=== PATIENT | male | born 1965 | race Caucasian/White ===

== ENCOUNTER 2022-09-21 07:18 | Outpatient (CLI) | payer BC, SELFPAY ==
--- NOTE | ~2022-09-21 | US_ITS ---
EXAMINATION: US abdomen complete DATE: 09/21/2022 07:59 INDICATION: Abnormal levels of other serum enzymes. TECHNIQUE: Multiple grayscale and Doppler ultrasound images of the abdomen were obtained. COMPARISON: CT abdomen and pelvis 03/07/2016 FINDINGS: Abdominal aorta is normal in caliber. The visualized portions of the head and body of the p ancreas are normal. The liver is normal without focal lesion. There is normal flow in main portal vei n. The inferior vena cava is normal. The gallbladder is normal in size. No gallstones or gallbladder wall thickening. There is no sonographic Irizarry sign. The common duct is normal and measures 3 mm. Th e kidneys are normal in size. The spleen is normal in size. IMPRESSION: 1. Normal complete abdomen ultrasound. Reviewed, dictated and finalized at location A.
== END 2022-09-21 07:19 | disposition home or self-care (01) ==
PROVIDERS: PCP Family Medicine; Visit Provider Physician Assistant Medical
DX: R74.8 Abnormal levels of other serum enzymes (principal)
CPT/HCPCS: 76700

== ENCOUNTER 2022-10-29 17:45 | Emergency (ER) | payer BC, SELFPAY ==
[2022-10-29 17:48] VITALS: BP 195/100; PULSE 97; RESP 18; TEMP 36.5; O2SAT 98
--- NOTE | 2022-10-29 18:55 | ED.GENADULT ---
HPI - General Adult General Chief complaint: Urogenital-Male Stated complaint: diff urinating s/p prostate biopsy - jany Time Seen by Provider: 10/29/22 18:15 History of Present Illness HPI narrative: 57-year-old male presented to the emergency department for evaluation of increased urinary retention. Patient did have a rectal approach prostate biopsy by Dr. Reich. Patient states he has not been able to urinate since the procedure. Related Data Allergies Allergy/AdvReac Type Severity Reaction Status Date / Time No Known Allergies Allergy Verified 09/14/22 08:17 Review of Systems Review of Systems: All systems reviewed & are unremarkable except as noted in HPI and below PMFSH Past Medical History Medical History BMI 26.0-26.9,adult BMI 27.0-27.9,adult Family History Family History Father Hypertension Family history of diabetes mellitus in first degree relative Mother Hypertension Family history of kidney disease Family history of diabetes mellitus in first degree relative Social History Social History Smoking status: Never smoker Alcohol intake: current Lack of Transportation: No Lack of Food: Never True Current Housing: I Have Housing Concerned About Future Housing: No Difficulty Paying Gas/Electric Bills: No Difficulty Paying for Meds: No Currently Unemployed: No Education: Bachelor's Degree Difficulty w/ Childcare or Family Care: No Exam Narrative: APPEARANCE: Well appearing, no pain, no distress, well-nourished. HEAD: normocephalic, atraumatic. EYES: PERRLA/EOMI, conjunctivae clear. NOSE: Normal no drainage EARS:TMS clear with good light reflex. THROAT: Pharynx clear, no exudate. NECK: Supple. No adenopathy, no masses. RESPIRATORY: Airway patent, respirations nonlabored. Clear to auscultation bilaterally, no rales, rhonchi, wheezing. CARDIOVASCULAR: Regular rate and rhythm without murmurs rubs or gallops. ABDOMINAL: Soft, nontender, nondistended, normal bowel sounds MUSCULOSKELETAL: Moves all extremities. Strength/ROM intact, No edema, No calf tenderness. NEURO: Alert. Cranial nerves II through XII intact. Grossly intact SKIN: Warm, dry. Normal Color Course Course Emergency Course: 57-year-old male presented to the emergency department for evaluation of urinary retention. Patient had a post residual urinary volume of greater than 650 mL. Patient had a straight cath and had no gross hematuria. Patient will have a indwelling Mai catheter placed. 7:53 PM UA did show some hematuria but no significant evidence of infection. Patient was started on Flomax. Patient was updated on the plan for discharge with a Mai catheter. Patient was encouraged of close follow-up with Dr. Reich. All questions and concerns were addressed and patient was well-appearing at time of discharge. Vital Signs Vital signs: Vital Signs Temperature 97.7 F 10/29/22 17:48 Pulse Rate 97 10/29/22 17:48 Respiratory Rate 18 10/29/22 17:48 Blood Pressure 195/100 H 10/29/22 17:48 Pulse Oximetry 98 10/29/22 17:48 Oxygen Delivery Room Air 10/29/22 17:48 Temperature 97.7 F 10/29/22 17:48 Pulse Rate 83 10/29/22 20:48 Respiratory Rate 15 10/29/22 20:48 Blood Pressure 158/93 H 10/29/22 20:48 Pulse Oximetry 100 10/29/22 20:48 Oxygen Delivery Room Air 10/29/22 17:48 Medical Decision Making Differential Diagnosis Differential Diagnosis: Urinary tract infection, urinary retention Vital Signs Vital Signs: Vital Signs Temperature 97.7 F 10/29/22 17:48 Pulse Rate 97 10/29/22 17:48 Respiratory Rate 18 10/29/22 17:48 Blood Pressure 195/100 H 10/29/22 17:48 Pulse Oximetry 98 10/29/22 17:48 Oxygen Delivery Room Air 10/29/22 17:48 Temperature 97.7 F 10/29/22 17:48
[2022-10-29 19:17] LABS: Appearance Urine Clear (Clear); Bacteria Urine None Seen /hpf; Bilirubin Urine Negative (Negative); Blood Urine 3+ (Negative); Color Urine Yellow (Yellow); Glucose Urine UA 3+ mg/dL (Negative); Ketones Urine Trace mg/dL (Negative); Leukocyte Esterase Ur Negative LEU/UL (Negative); Nitrate Urine Negative (Negative); Non Pathogenic Casts 0-2; Protein Urine Trace mg/dL (Negative); RBC Urine >100 /hpf (0-2); Specific Grav Ur 1.017 (1.001-1.035); Squamous Epithelial Cell Urine None seen /hpf (Few); WBC Urine 0-5 /hpf
[2022-10-29 19:27] LABS: Add Urine Microscopic? YES
[2022-10-29] MEDS: TAMSULOSIN HCL 0.4 MG CAPSULE PO (19:27)
[2022-10-29 20:48] VITALS: BP 158/93; PULSE 83; RESP 15; O2SAT 100
== END 2022-10-29 20:52 | disposition home or self-care (01) ==
PROVIDERS: Emergency Provider Emergency Medicine; PCP Family Medicine
DX: R33.9 Retention of urine, unspecified (principal)
CPT/HCPCS: 81001; 99283; A9270

== ENCOUNTER 2022-11-21 11:30 | Outpatient (CLI) | payer BC, SELFPAY ==
--- NOTE | ~2022-11-21 | PE_ITS ---
EXAMINATION: PET_PETPSMAST_PT DATE: 11/21/2022 13:59 INDICATION: Prostate cancer. TECHNIQUE: 9.176 mCi of piflufolastat F-18 was administered intravenously. Low dose computed tomograp hy (CT) images were acquired from the base of the brain to the proximal thighs for attenuation correc tion and anatomic localization. Automated exposure control was employed. Dose-length product (DLP) wa s 481 mGy-cm. Positron emission tomography (PET) images were acquired in the same distribution. COMPARISON: CT abdomen and pelvis 03/07/2016 FINDINGS: Head/neck: There are no pathologically enlarged lymph nodes. Chest: Calcified pulmonary nodules and calcified hilar and mediastinal lymph nodes are consistent wit h old granulomatous disease. No pleural effusion. Cardiomegaly is noted. No pericardial effusion. Abdomen/pelvis/proximal thighs: The liver, gallbladder, spleen, pancreas, adrenal glands, and kidneys are normal. There is no urolithiasis. The prostate is mildly enlarged. There is mild activity in the prostate with maximum SUV of 4.3 in the inferior prostate at the midline. There is diffuse bladder w all thickening, likely secondary to chronic outlet obstruction. There are no dilated loops of bowel. The appendix is normal. There are no pathologically enlarged lymph nodes. There is no free intraperit daniel fluid. There is asymmetric fat in the right inguinal canal that may be a hernia. There is a rip ign bone island in left parasymphyseal pubis. IMPRESSION: 1. Mildly enlarged prostate with mild activity, consistent with primary malignancy. No evidence of me tastatic disease. Reviewed, dictated and finalized at location A. IMPRESSION: 1. Mildly enlarged prostate with mild activity, consistent with primary maligna ncy. No evidence of metastatic disease.
== END 2022-11-21 11:31 | disposition home or self-care (01) ==
PROVIDERS: PCP Family Medicine; Visit Provider Urology
DX: C61 Malignant neoplasm of prostate (principal)
CPT/HCPCS: 78815; A9595

== ENCOUNTER 2023-02-04 09:42 | Outpatient (CLI) | payer BC, SELFPAY ==
--- NOTE | 2023-02-04 10:45 | ECG_ITS ---
Measurements Intervals [place] Rate: 77 P: 41 AK: 164 QRS: 1 QRSD: 86 T: 5 QT: 364 QTc: 414 Interpretive Statements SINUS RHYTHM POOR R-WAVE PROGRESSION OTHERWISE nORMAL ELECTROCARDIOGRAM NO PREVIOUS ECG AVAILABLE FOR COMPARISON Electronically Signed On 02-04-2023 13:39:10 CDT by Lucius Hyman M.D.
[2023-02-04 11:42] LABS: Basophils Absolute Auto 0.1 K/mm3 (0.0-0.1); Eosinophils Absolute Auto 0.4 K/mm3 (0-0.3); Eosinophils Percent Auto 5.9 % (0-4.4); Hematocrit 42.2 % (42.0-52.0); Hemoglobin 13.9 g/dL (14.0-18.0); Immature Granulocyte Absolute 0.02 K/mm3 (0.00-0.031); Immature Granulocyte Percent A 0.3 % (0-0.5); Lymphocytes Absolute Auto 2.35 K/mm3 (0.9-3.2); Lymphocytes Percent Auto 34.8 % (18.3-44.2); Mean Corpuscular HGB Conc 32.9 g/dl (32-36); Mean Corpuscular Hemoglobin 30.2 pg (26-34); Mean Corpuscular Volume 91.7 fl (80-100); Mean Platelet Volume 9.3 fl (7.4-10.4); Monocytes Absolute Auto 0.4 K/mm3 (0.1-0.6); Monocytes Percent Auto 5.3 % (2.6-8.5); Neutrophils Absolute Auto 3.6 K/mm3 (1.3-6.7); Neutrophils Percent Auto 52.7 % (45.5-73.1); Platelet Count Result 275 k/mm3 (150-375); Red Cell Distribution Width 12.2 % (11.5-14.5); White Blood Count 6.8 K/mm3 (4.5-10.0)
[2023-02-04 11:52] LABS: Alanine Aminotransferase 63 U/L (6-50); Albumin Level 4.8 g/dL (3.5-5.1); Alkaline Phosphatase 111 U/L (38-126); Anion Gap 12 mmol/L (8-16); Aspartate Amino Transferase 55 U/L (17-59); Bilirubin,Total 0.7 mg/dL (0.2-1.3); Blood Urea Nitrogen 13 mg/dL (9-20); Calcium 9.3 mg/dL (8.4-10.2); Carbon Dioxide 25 mmol/L (22-30); Chloride 103 mmol/L (98-107); Estimated Glomerular Filt Rate > 60; Glucose 134 mg/dL (65-110); Potassium 3.8 mmol/L (3.4-5.0); Sodium 140 mmol/L (137-145)
[2023-02-04 11:53] LABS: INR 0.9; Prothrombin Time 12.9 Seconds (11.1-14.7)
[2023-02-04 11:54] LABS: Partial Thromboplastin Time 26.4 SECONDS (22.3-36.8)
== END 2023-02-04 09:43 | disposition home or self-care (01) ==
LOC: ANHSURGERY 09:48
PROVIDERS: PCP Family Medicine; Visit Provider Urology
DX: C61 Malignant neoplasm of prostate (principal); I10 Essential (primary) hypertension; Z01.818 Encounter for other preprocedural examination
CPT/HCPCS: 36415; 80053; 85025; 85610; 85730; 87086; 93005

== ENCOUNTER 2023-02-19 01:20 | Day surgery (SDC) | payer BC, SELFPAY ==
[2023-02-04 09:57] VITALS: PULSE 80; RESP 16; TEMP 37.3; O2SAT 100; BMI 28.0
--- NOTE | 2023-02-04 10:05 | PC.NURSE ---
Report to the Outpatient Waiting Room, entrance under the green pavilion located off [facility], at time ___6:00AM____ on date __02/19/23 . Planned Procedure Time: ___7:30AM . Time changes happen often and if your time is changed the preop area will call you the afternoon before. - You and your visitor will be asked to self-screen and do not enter if you have any COVID symptoms. - A mask is optional within the hospital at this time. Patients may have clear liquids (water, carbonated beverages, clear teas, apple juice) until 3 hours prior to surgery with a maximum of 20 ounces. - No food from midnight until time of surgery. Take the following medications with a SIP of water the morning of surgery: ____METOPROLOL DO NOT STOP ANY OF YOUR OTHER PRESCRIPTION MEDICATIONS PRIOR TO SURGERY ?EXCEPT THE FOLLOWING Medications to discontinue per physician ___NONE Date to take last dose Please no make-up, nail algerian, hairspray, perfume, deodorant, or body powder the day of surgery. No jewelry (including any body piercings) or valuables the day of surgery, leave them at home. Please take a shower or bath the night before, or the morning of, surgery with an antibacterial soap. Wear comfortable, loose fitting clothing. Children are encouraged to wear pajamas. - Jewelry must be removed prior to entering the operating room. Rings and piercings that are not removed may be cut off. - The hospital will not accept responsibility for valuables. - Please leave all valuables, including medications, at home the day of surgery. If you are going home after surgery, a licensed [place] driver must drive you home. - NO public transportation without another adult if you receive anesthesia. - We recommend that an adult stay with you for 24 hours following discharge. - We also recommend that you do not drive, make important decision, drink alcoholic beverages, or take any drugs that were not prescribed by your health care provider for at least 24 hours after your discharge time. Follow any additional instructions given to you from your surgeon. If you or anyone in your household have experienced Covid symptoms in the past week, please notify your surgeon or the nurse liaison at the phone number below for possible testing. Telephone instructions given to __PATIENT and asked if any additional questions and then verbalized understanding. Patient advised to call surgeon office or pre surgery nurse liaison [phone] if any additional questions. Report to the Outpatient Waiting Room, entrance under the green pavilion located off [facility], at time on date . Planned Procedure Time: . Time changes happen often and if your time is changed the preop area will call you the afternoon before. - You and your visitor will be asked to self-screen and do not enter if you have any COVID symptoms. - A mask is optional within the hospital at this time. Patients may have clear liquids (water, carbonated beverages, clear teas, apple juice) until 3 hours prior to surgery with a maximum of 20 ounces. - No food from midnight until time of surgery - Infants may have breast milk until 4 hours before surgery, formula 6 hours prior to surgery. - Children will be allowed to drink immediately following surgery. If applicable, please bring a bottle or sippy cup to assist with drinking. Juice, water, soda, and popsicles are readily available. For infants on formula, please bring formula the day of surgery. Pacifiers are allowed. Take the following medications with a SIP of water the morning of surgery: DO NOT STOP ANY OF YOUR OTHER PRESCRIPTION MEDICATIONS PRIOR TO SURGERY ?EXCEPT THE FOLLOWING Medications to discontinue per physician Date to take last dose Please no make-up, nail algerian, hairspr
--- NOTE | 2023-02-04 10:09 | PC.NURSE ---
Report to the Outpatient Waiting Room, entrance under the green pavilion located off [facility], at time __6:00AM on date __02/19/23 . Planned Procedure Time: _7:30AM . Time changes happen often and if your time is changed the preop area will call you the afternoon before. - You and your visitor will be asked to self-screen and do not enter if you have any COVID symptoms. - A mask is optional within the hospital at this time. Patients may have clear liquids (water, carbonated beverages, clear teas, apple juice) until 3 hours prior to surgery with a maximum of 20 ounces. - No food from midnight until time of surgery. Take the following medications with a SIP of water the morning of surgery: _METOPROLOL DO NOT STOP ANY OF YOUR OTHER PRESCRIPTION MEDICATIONS PRIOR TO SURGERY ?EXCEPT THE FOLLOWING Medications to discontinue per physician NONE Date to take last dose Please no make-up, nail maltese, hairspray, perfume, deodorant, or body powder the day of surgery. No jewelry (including any body piercings) or valuables the day of surgery, leave them at home. Please take a shower or bath the night before, or the morning of, surgery with an antibacterial soap. Wear comfortable, loose fitting clothing. - Jewelry must be removed prior to entering the operating room. Rings and piercings that are not removed may be cut off. - The hospital will not accept responsibility for valuables. - Please leave all valuables, including medications, at home the day of surgery. If you are going home after surgery, a licensed recycling collections driver must drive you home. - NO public transportation without another adult if you receive anesthesia. - We recommend that an adult stay with you for 24 hours following discharge. - We also recommend that you do not drive, make important decision, drink alcoholic beverages, or take any drugs that were not prescribed by your health care provider for at least 24 hours after your discharge time. Follow any additional instructions given to you from your surgeon. If you or anyone in your household have experienced Covid symptoms in the past week, please notify your surgeon or the nurse liaison at the phone number below for possible testing. Telephone instructions given to ___PATIENT and asked if any additional questions and then verbalized understanding. Patient advised to call surgeon office or pre surgery nurse liaison [phone] if any additional questions.
--- NOTE | 2023-02-18 15:09 | WPDANESEPPF ---
Anes - Initial Pre Proc Eval Procedure: Operation Date: 02/19/23 07:30 Proposed Procedures p Robotic Assisted Nerve Sparing Prostatectomy with Possible Pelvic Lymph Node Dissection - Lang Reich MD Date/Time: 02/18/23 15:09 Surgeon: Lang Reich MD Pre Op Diagnosis: prostate cancer Patient Data Age: 57 Gender: M Height: 1.78 m Weight: 88.9 kg Last Vital Signs Temp 99.1 F 02/04/23 09:57 Pulse 80 02/04/23 09:57 Resp 16 02/04/23 09:57 Pulse Ox 100 02/04/23 09:57 O2 Del Method Room Air 02/04/23 09:57 Allergies Allergy/AdvReac Type Severity Reaction Status Date / Time No Known Allergies Allergy Verified 02/04/23 09:53 Home Medications Medication Instructions Recorded Confirmed Type rosuvastatin 20 mg tablet (Crestor) 20 mg PO DAILY #30 tabs 10/15/22 02/04/23 Rx tamsulosin 0.4 mg capsule (Flomax) 0.4 mg PO DAILY #14 caps 10/29/22 02/04/23 Rx finasteride 5 mg tablet 5 mg PO DAILY 01/04/23 02/04/23 History dapagliflozin propaned 5 1 tablet PO QAM 02/04/23 02/04/23 History mg-metformin ER 1,000 mg tablet, ext rel 24hr (Xigduo XR) lisinopril 20 mg tablet 20 mg PO QAM 02/04/23 02/04/23 History metoprolol succinate 25 mg 25 mg PO QAM 02/04/23 02/04/23 History tablet,extended release 24 hr Results Review: All pre-operative results and documents have been reviewed as part of the pre-operative evaluation. REPLACED BY [facility] Past Medical History Medical History BMI 26.0-26.9,adult BMI 27.0-27.9,adult Family History Family History Father Hypertension Family history of diabetes mellitus in first degree relative Mother Hypertension Family history of kidney disease Family history of diabetes mellitus in first degree relative Social History Social History Smoking status: Never smoker Alcohol intake: current Substance use: never Lack of Transportation: No Lack of Food: Never True Current Housing: I Have Housing Concerned About Future Housing: No Difficulty Paying Gas/Electric Bills: No Difficulty Paying for Meds: No Currently Unemployed: No Education: Bachelor's Degree Difficulty w/ Childcare or Family Care: No Living arrangements: with family Additional living arrangements comments: AND CHILDREN Spiritual care concerns: No Anes - Eval Final PreProcedure Day of Procedure 02/18/23 15:09 Results Review: All pre-operative results and documents have been reviewed as part of the pre-operative evaluation. Informed Consent: The patient's anesthetic plan and its attendant risks and benefits were discussed with the patient/family/POA. Questions were solicited and answers provided to the satisfaction of the patient/family/POA.
[2023-02-19] VITALS (12 sets, daily range): BP systolic 148–165; BP diastolic 73–88; PULSE 77–91; RESP 16–28; TEMP 35.9–36.7; O2SAT 96–100; BMI 27.2
--- NOTE | ~2023-02-19 | XR_ITS ---
EXAMINATION: XR abdomen/kub 1V DATE: 02/19/2023 11:37 INDICATION: Lost needle TECHNIQUE: A supine AP view of the region of concern at the lower pelvis was obtained. COMPARISON: CT dated 03/07/2016 FINDINGS: There is a curved needle in the soft tissues projecting slightly to the left of the inferior margin o f the pubic symphysis. Expected postoperative gas is seen in the deep pelvis and extending to the scr otum consistent with the immediately prior prostatectomy. Surgical drain extends from the right lower quadrant crossing midline in the deep pelvis. Bones are unremarkable. IMPRESSION: 1. Retained needle in the region of the recent prostatectomy. Reviewed, dictated and finalized at location A.
[2023-02-19 06:20] LABS: Glucose Point of Care 100 mg/dl (65-105)
[2023-02-19] MEDS: LACTATED RINGERS 1,000 ML 30 ML IV CONT ×2 (06:43→12:12)
--- NOTE | 2023-02-19 06:59 | WPDANESEPPF ---
Anes - Initial Pre Proc Eval Procedure: Operation Date: 02/19/23 07:30 Proposed Procedures p Robotic Assisted Nerve Sparing Prostatectomy with Possible Pelvic Lymph Node Dissection - Lang Reich MD Date/Time: 02/19/23 06:59 Surgeon: Lang Reich MD Pre Op Diagnosis: prostate cancer Patient Data Age: 57 Gender: M Height: 1.78 m Weight: 86.15 kg Last Vital Signs Temp 36.6 C 02/19/23 06:46 Pulse 88 02/19/23 06:46 Resp 20 02/19/23 06:46 BP 165/86 H 02/19/23 06:46 Pulse Ox 100 02/19/23 06:46 O2 Del Method Room Air 02/19/23 06:46 Allergies Allergy/AdvReac Type Severity Reaction Status Date / Time No Known Allergies Allergy Verified 02/04/23 09:53 Home Medications Medication Instructions Recorded Confirmed Type rosuvastatin 20 mg tablet (Crestor) 20 mg PO DAILY #30 tabs 10/15/22 02/19/23 Rx tamsulosin 0.4 mg capsule (Flomax) 0.4 mg PO DAILY #14 caps 10/29/22 02/19/23 Rx finasteride 5 mg tablet 5 mg PO DAILY 01/04/23 02/19/23 History dapagliflozin propaned 5 1 tablet PO QAM 02/04/23 02/19/23 History mg-metformin ER 1,000 mg tablet, ext rel 24hr (Xigduo XR) lisinopril 20 mg tablet 20 mg PO QAM 02/04/23 02/19/23 History metoprolol succinate 25 mg 25 mg PO QAM 02/04/23 02/19/23 History tablet,extended release 24 hr Laboratory Tests 02/19/23 06:17 POC Capillary Glucose 100 mg/dl (65-105) Patient hx anesthesia problems: none Family hx anesthesia problems: none Results Review: All pre-operative results and documents have been reviewed as part of the pre-operative evaluation. [facility] Past Medical History Medical History (Updated 01/04/23 @ 12:15 by JANELLE Jeffers) BMI 26.0-26.9,adult BMI 27.0-27.9,adult Surgical History Surgical History (Updated 02/19/23 @ 07:00 by Kevin Pham MD) H/O wisdom tooth extraction Family History Family History Father Hypertension Family history of diabetes mellitus in first degree relative Mother Hypertension Family history of kidney disease Family history of diabetes mellitus in first degree relative Social History Social History Smoking status: Never smoker Alcohol intake: current Substance use: never Lack of Transportation: No Lack of Food: Never True Current Housing: I Have Housing Concerned About Future Housing: No Difficulty Paying Gas/Electric Bills: No Difficulty Paying for Meds: No Currently Unemployed: No Education: Bachelor's Degree Difficulty w/ Childcare or Family Care: No Living arrangements: with family Additional living arrangements comments: AND CHILDREN Spiritual care concerns: No Anes - Eval Final PreProcedure Day of Procedure 02/19/23 06:59 Patient weight: overweight Heart: regular rate and rhythm Lungs: clear to auscultation Airway: Mallampati scale class II Neurological: alert and oriented Last oral intake: >/= 8 hours ASA classification: III Emergent: no Anesthetic plan: proceed Anesthesia type and monitoring: general ETT and standard monitoring Results Review: All pre-operative results and documents have been reviewed as part of the pre-operative evaluation. Informed Consent: The patient's anesthetic plan and its attendant risks and benefits were discussed with the patient/family/POA. Questions were solicited and answers provided to the satisfaction of the patient/family/POA.
--- NOTE | 2023-02-19 07:11 | WPDHPUPDATE1 ---
History and Physical Update Update Date/Time: 02/19/23 07:11 History and Physical has been reviewed, including an updated exam of the patient. There are NO changes in the patient's condition. Risks, benefits, and alternatives have been discussed and questions answered. Patient agrees to proceed with procedure. Proceed with robotic assist nerve sparing prostatectomy with possible plnd
[2023-02-19] MEDS: ceFAZolin 2 GM/D5W 50 ML 2 GM/50 ML BAG IVPB (07:24)
[2023-02-19] MEDS: BUPivacaine HCL 0.5% PF 30 ML VIAL 40 ML INFILTRATE (08:11)
--- NOTE | 2023-02-19 11:49 | P.OP_ITS ---
Procedure Note - Detailed Date of Procedure 02/19/23 Pre-op Diagnosis prostate cancer Post-op Diagnosis Same Procedure Performed Robotic assisted nerve-sparing prostatectomy with right pelvic lymph node dissection Surgeon Lang Reich MD Anesthesia General Description of Procedure Patient is taken the operative suite correctly identified. Once anesthesia was obtained was placed in low-lying dorsal lithotomy position prepped draped usual sterile fashion. Eighteen [place] Mai was placed with 20 cc in the balloon. Supraumbilical incision was made carried down to the rectus fascia. Veress needle was inserted the abdomen was insufflated to 15 mmHg pressure. Camera port was then placed under direct vision. Working ports were placed in their appropriate locations. Patient was placed in steep Trendelenburg position. The robot was docked. Patient had some adhesions along the sigmoid colon which was taken down. Posterior approach was then taken. Seminal vesicles were dissected out their entirety. Vas were transected. The plane between the rectum the prostate was developed. Bladder was taken down the standard fashion. Space of Retzius was developed bilaterally. Puboprostatic were taken down. Dorsal venous complex was isolated using 0 Vicryl secured to the bone. The bladder ne ck was then opened anteriorly. Patient was noted to have a moderate-sized median lobe. This was dissected out. It was a nice bladder neck sparing resection. Posterior fascia was incised seminal vesicles were visualized. Pedicles were taken down clipped. Bilateral nerve-sparing was performed. Dorsal venous complex was then transected. Urethra was also transected. Specimen was placed in Endo-Catch bag. A right pelvic lymph node dissection was then performed with the boundaries being Joseph's ligament, external his GI vein, obturator nerve, bifurcation of the vessels. The specimen was also placed in the Endo-Catch bag. Surgicel was placed in obturator fossa. The Ivan stitch was then placed to take tension off the anastomosis. AV lock suture was then used. We started at the 6 o'clock position on the bladder. Upon throwing a 6:00 a.m. stitch on the urethral stump the suture disengage from needle and needle retracted into the. Ureteral tissue. I dissected around this area but was unable locate this needle. Flexible cystoscopy was also performed to make sure the needle had not retracted into the urethra. No needle was found. At this point it was decided to complete the anastomosis rather than to cause more trauma by searching for this small little needle in the soft tissue. A new V lock suture was then used. The anastomosis was performed circumferentially with good approximation of the urethral mucosa to the bladder neck mucosa. Eighteen [place] Mai was then placed with 10 cc in the balloon. 200 cc were placed in the bladder without any evidence of extravasation. BENJAMIN drain was then placed through the 4th arm port. This was secured. The robot was undocked and an x- ray was performed this did confirm that the needle was located the periurethral tissue on the right side. This was confirmed. The specimen was then brought out through the midline incision. Rectus fascia was closed using 0 Vicryl in a running fashion. Subcuticular stitches were then placed. Incisions were anesthetized using 1% lidocaine. Lap counts were correct. Blood loss was minimal. Patient is taken recovery stable condition. This completes dictation. Please send a copy this to my office Estimated Blood Loss 50 Drains Yes Packing No Pathology Yes Complications Other complications (Retained suture Yessi- ureteral tissue ) Condition Stable Disp
[2023-02-19 12:28] LABS: Glucose Point of Care 175 mg/dl (65-105)
[2023-02-19] MEDS: fentaNYL CITRATE INJ (*CRX) 100 MCG/2 ML VIAL 25 MCG IV PUSH ×2 (12:50→12:53)
--- NOTE | 2023-02-19 13:38 | SUR.OPER ---
During prostatectomy, about 1030, as Dr. Reich starting anastomosis portion of procedure, needle detached from suture while inside urethral tissue. MD spent approximately thirty minutes searching for needle within tissue. He then performed flexible cystoscopy to see if needle was visible inside urethra. Unable to locate needle. Decision made by MD to leave needle in pelvis instead of causing more harm to surrounding tissue. MD finished anastomosis and rest of procedure as scheduled. Xray performed at 1123 to verify needle placement. Radiologist spoke with Dr. Reich and confirmed needle was in right lower pelvis. Pt taken to PACU in stable condition. Information relayed to CHILDREN'S MINISTER who will continue to monitor pt.
--- NOTE | 2023-02-19 13:40 | PC.NURSE ---
This patient, Lucius Mata, was admitted to [facility] Surg Room 330-01. Patient/family oriented to hospital policies and general routines including ID bracelet, bed and alarms, visiting hours, pain management, procedures, bathroom and other care routines, personal items, smoking policy, room service/diet, and visiting hours. Information on how to activate the Rapid Response Team has been discussed. Patient/Family are encouraged to report perceived risks to care and to ask questions if they do not understand what they are told or what they should do.
[2023-02-19] MEDS: LACTATED RINGERS 1,000 ML 125 ML IV CONT ×2 (14:14→21:32)
[2023-02-19] MEDS: PROPARACAINE HCL 0.5% 15 ML OPHTH SOLN 1 DROP EACH EYE (17:00)
[2023-02-19] MEDS: ARTIFICIAL TEARS OPHTH SOLN 15 ML BOTTLE 1 DROP EACH EYE (17:02)
[2023-02-19] MEDS: DOCUSATE SODIUM 100 MG CAPSULE PO (17:11)
[2023-02-19] MEDS: DICLOFENAC SODIUM 0.1% OPHTH SOLN 2.5 ML BOTTLE 1 DROP EACH EYE (21:28)
[2023-02-20] VITALS: BP 144/82; PULSE 67; RESP 16; TEMP 36.6; O2SAT 97
[2023-02-20 04:00] VITALS: BP 134/74; PULSE 76; RESP 16; TEMP 37.1; O2SAT 98
[2023-02-20] MEDS: LACTATED RINGERS 1,000 ML 125 ML IV CONT (05:59)
[2023-02-20] MEDS: DICLOFENAC SODIUM 0.1% OPHTH SOLN 2.5 ML BOTTLE 1 DROP EACH EYE ×2 (05:59→14:11)
[2023-02-20 06:04] LABS: Hematocrit 38.3 % (42.0-52.0); Hemoglobin 12.6 g/dL (14.0-18.0)
[2023-02-20 06:22] LABS: Anion Gap 7 mmol/L (8-16); Blood Urea Nitrogen 19 mg/dL (9-20); Calcium 8.3 mg/dL (8.4-10.2); Carbon Dioxide 24 mmol/L (22-30); Chloride 103 mmol/L (98-107); Estimated CRCL calculation 84 ml/min; Estimated Glomerular Filt Rate > 60; Glucose 180 mg/dL (65-110); Potassium 3.9 mmol/L (3.4-5.0); Sodium 134 mmol/L (137-145)
[2023-02-20 08:00] VITALS: BP 138/83; PULSE 63; RESP 18; TEMP 37.1; O2SAT 96
[2023-02-20 08:10] VITALS: PULSE 68
[2023-02-20] MEDS: DOCUSATE SODIUM 100 MG CAPSULE PO (08:10)
[2023-02-20] MEDS: lisinopriL 20 MG TABLET PO (08:10)
[2023-02-20] MEDS: METOPROLOL SUCCINATE EXT REL 25 MG TABCR PO (08:10)
[2023-02-20] MEDS: ROSUVASTATIN 10 MG TABLET 20 MG PO (08:11)
[2023-02-20] MEDS: levoFLOXacin 500 MG TABLET PO (08:11)
--- NOTE | 2023-02-20 10:05 | WPDANESPN ---
Anes - Prog Note Post-Op Date/Time: 02/20/23 10:05 Cardiovascular status: normal Respiratory status: normal Airway patency: baseline Mental status: baseline Post-Op hydration status: normal Vital Signs: Last Vital Signs Temp 37.1 C 02/20/23 08:00 Pulse 68 02/20/23 08:10 Resp 18 02/20/23 08:00 BP 138/83 02/20/23 08:00 Pulse Ox 96 02/20/23 08:00 O2 Del Method Room Air 02/20/23 08:10 O2 Flow Rate 6 02/19/23 12:40 Pain Score (VAS): 0 I/O: Intake & Output 02/19/23 02/20/23 02/20/23 23:59 07:59 15:59 Intake Total 1858 2900 240 Output Total 1620 1630 Balance 238 1270 240 Laboratory Tests 02/20/23 05:46 02/20/23 05:46 02/19/23 02/20/23 12:24 05:46 Hgb 12.6 L Hct 38.3 L Sodium 134 L Potassium 3.9 Chloride 103 Carbon Dioxide 24 Anion Gap 7 L BUN 19 Creatinine 0.90 Estim Creat Clear Calc 84 Estimated GFR > 60 Glucose 180 H POC Capillary Glucose 175 H Calcium 8.3 L Post-procedural complaints: none Patient Feedback: Patient satisfied with anesthetic care.
--- NOTE | 2023-02-20 10:24 | WPDUROPN2 ---
Progress Note: A&P Assessment and Plan (1) Prostate cancer: Code(s): C61 - Malignant neoplasm of prostate Status: Acute Assessment and Plan: Will plan to discharge the patient home this afternoon with BENJAMIN drain and martinez catheter. Change martinez bag to leg bag and send home large bag to switch to at night. Teach martinez and BENJAMIN care. Increase activity this morning. Subjective Subjective Date/Time Seen: 02/20/23 10:24 Post Op day: 1 Principal diagnosis: Prosate Cancer Interval history: S/P Robotic assisted nerve-sparing prostatectomy with right pelvic lymph node dissection. Pt. doing very well today, passing flatus, tolerating diet and activity without pain. His urine remains clear in the martinez and BENJAMIN drain is draining approximately 230cc of bloody drainage over the past 24 hours. Review of Systems Cardiovascular: Cardiovascular: Denies chest pain Respiratory: Respiratory: Reports no additional respiratory complaints Gastrointestinal: Gastrointestinal: Denies abdominal pain, Reports constipation, Denies excessive flatus, Denies nausea and Denies vomiting Genitourinary: Genitourinary: Denies hematuria, Denies flank pain and Denies scrotal swelling Exam Const: General: cooperative and comfortable Cardio: Rate: regular rate GI: Inspection: incision (well approximated, no drainage or erythema present, no edema or ecchymosis) and other (BENJAMIN drain sutured in place with 75cc of bloody drainage present, dry gauze) GI Palp: Yes Soft to palpation and Yes Tenderness to palpation present (GI) (at incisions only) : Meatus: Blood at meatus present Scrotum: scrotum normal Urinary Catheter: Urinary Catheter: patent and draining and urine clear Extrem: Right lower extremity: no edema Left lower extremity: no edema Objective Data Vital Signs Vital Signs: Vital Signs - 24 hr 02/19/23 12:12 02/19/23 12:25 02/19/23 12:40 Temperature 98.0 F Pulse Rate 87 83 84 Respiratory Rate 28 H 22 H 20 Blood Pressure 155/85 H 152/84 H 158/88 H Pulse Oximetry 100 100 100 Oxygen Delivery Simple Face Mask Simple Face Mask Simple Face Mask Oxygen Flow Rate 6 6 6 02/19/23 12:45 02/19/23 12:55 02/19/23 13:10 Temperature Pulse Rate 86 86 Respiratory Rate 20 16 Blood Pressure 148/81 H 150/84 H Pulse Oximetry 98 96 Oxygen Delivery Room Air Room Air Room Air Oxygen Flow Rate 02/19/23 13:25 02/19/23 13:40 02/19/23 14:14 Temperature 97.0 F L 96.8 F L 97.2 F L Pulse Rate 88 88 84 Respiratory Rate 16 16 16 Blood Pressure 154/84 H 155/80 H 154/81 H Pulse Oximetry 98 97 97 Oxygen Delivery Room Air Oxygen Flow Rate 02/19/23 14:25 02/19/23 15:25 02/19/23 13:40 Temperature 97.3 F L 96.7 F L Pulse Rate 77 91 Respiratory Rate 16 20 Blood Pressure 153/79 H 165/73 H Pulse Oximetry 97 98 Oxygen Delivery Room Air Oxygen Flow Rate 02/19/23 20:00 02/20/23 00:00 02/20/23 04:00 Temperature 98.1 F 98 F 98.7 F Pulse Rate 86 67 76 Respiratory Rate 16 16 16 Blood Pressure 161/80 H 144/82 H 134/74 Pulse Oximetry 97 97 98 Oxygen Delivery Oxygen Flow Rate 02/20/23 08:10 02/20/23 08:00 02/20/23 08:10 Temperature 98.8 F Pulse Rate 68 63 Respiratory Rate 18 Blood Pressure 138/83 Pulse Oximetry 96 Oxygen Delivery Room Air Oxygen Flow Rate Intake/Output Intake/Output: Intake & Output 02/17/23 02/18/23 02/19/23 02/20/23 23:59 23:59 23:59 23:59 Intake Total 2508 3140 Output Total 2130 1630 Balance 378 1510 Meds/Results Medications: Active Medications Generic Name Dose Route Start Last Admin Trade Name Freq PRN Reason Stop Dose Admin Hydrocodone Bitart/Acetaminophen 1 tab 02/19/23 13:29 Hydrocodone/Acetaminophen (*Crx) 5-325 Mg Tablet PO Q6H PRN Pain Rated 1-3 Hydrocodone Bitart/Acetaminophen 2 tab 02/19/23 13:29 Hydrocodone/Acetaminophen (*Crx) 5-325 Mg Tablet PO Q6H PRN Pain Rated 4-6 Artificial Tears
[2023-02-20 12:00] VITALS: BP 139/78; PULSE 67; RESP 18; TEMP 36.6; O2SAT 98
== END 2023-02-20 14:25 | disposition home or self-care (01) ==
LOC: ANHSURGERY 05:53 → ANH3MEDSUR 13:31
PROVIDERS: PCP Family Medicine; Visit Provider Urology
PROC: 0VT04ZZ Resection of Prostate, Percutaneous Endoscopic Approach (ICD-10-PCS; CPT 55867; principal; 2023-02-19 07:30)
DX: C61 Malignant neoplasm of prostate (principal); I10 Essential (primary) hypertension; E11.9 Type 2 diabetes mellitus without complications; E78.00 Pure hypercholesterolemia, unspecified; Z79.84 Long term (current) use of oral hypoglycemic drugs
CPT/HCPCS: 55866; 38571; S2900; 36415; 74018; 80048; 82948; 85014; 85018; 86850; 86900; 86901; 88309; A9270; J0690; J1100; J1170; J2250; J2405; J2704; J3010; J7120; Q9968

== ENCOUNTER 2023-02-27 08:26 | Outpatient (CLI) | payer BC, SELFPAY ==
--- NOTE | ~2023-02-27 | XR_ITS ---
EXAMINATION: CYSTOGRAM DATE: 02/27/2023 09:11 INDICATION: Malignant neoplasm of the prostate post prostatectomy TECHNIQUE: Initial armored machine operator radiograph of the pelvis was performed. There was retrograde administration of Omnipaque 350 mixed with saline contrast into patient's existing Mai catheter. Fluoroscopic dyan ges of the pelvis were obtained. A post-void image was also performed. Fluoroscopy exposure time was 0.6 minutes. A total of 16 images were recorded. Total DAP was 9.957 Gycm^2 FINDINGS: Contrast fills the bladder which demonstrates normal contour. No extraluminal contrast extravasation. Retained curved needle is positioned right and posterior to the course of the urethra as indicated b y the Mai catheter within the needle tip directed posteriorly. IMPRESSION: 1. No evident bladder leak. 2. Retained needle in the soft tissues to the right and posterior to the urethra. Reviewed, dictated and finalized at location A. IMPRESSION: 1. No evident bladder leak. 2. Retained needle in the soft tissues to the right and posterior to the urethr a.
== END 2023-02-27 08:27 | disposition home or self-care (01) ==
PROVIDERS: PCP Family Medicine; Visit Provider Nurse Practitioner Adult Health
DX: C61 Malignant neoplasm of prostate (principal)
CPT/HCPCS: 51600; 74430; Q9967

== ENCOUNTER 2025-01-01 12:30 | Outpatient (RCR) | payer BC, SELFPAY ==
--- NOTE | 2024-10-09 13:25 | OPREHPOC ---
Outpatient Therapy Plan of Care This is a Multidisciplinary Plan of Care that may contain components documented by all disciplines (PT, OT, and ST.) PT Problem 1 PT Problem #1 Knowledge Deficit PT Goal 1 Goal / Goal Update *independent with HEP Target Visit 8 PT Problem 2 PT Problem #2 Pain PT Goal 1 Goal / Goal Update * pt report pain rating of 3/10 at worst Target Visit 8 PT Problem 3 PT Problem #3 Impaired Flexibility PT Goal 1 Goal / Goal Update increase L shoulder flexibility to improve dressing and self care IR with reaching behind back, to palm above his waist Target Visit 8 PT Problem 4 PT Problem #4 Impaired Strength PT Goal 1 Goal / Goal Update increase strength of L shoulder-scapular complex , to improve use of L UE with self care and home activities: in standing, active x 5 reps: 1* flexion to 150' 2* abduction to 140' 3* pt stand with correct shoulder position with exercises and during therapy session Target Visit 8
--- NOTE | 2024-10-09 13:25 | PTOPEVAL1 ---
Assessment and note entered by Margoth Tinsley, PT Evaluation Information Assessment Status Evaluation ICD-10 Condition Codes (PT) Pain in left shoulder M25.512 weakness Onset August 2024 Subjective Information chronic L shoulder pain, due to sports and active lifestyle; gradual increase in pain without injury to shoulder R hand dominant no imaging done problems lifting L arm up, no strength in lifting L arm up and hurts activity: office work; sometimes residential mental health worker; Reported Pain Level Pain Score Self Report Additional Pain Score Comments pain range in the past week 0-7/10; dull pain, sharp pain last few seconds only, catches, hurts; top of GH joint; pain varies increase pain: lifting arm up, decrease pain: rest, is not taking any pain meds or use of ice/heat sleeping- no awaken due to shoulder pain; used to sleep with L arm overhead, can not do Assessment PT Clinical Summary Lucius has the diagnosis of L shoulder pain. He reports chronic issues with shoulder pain, but recently having weakness in shoulder with lifting arm up. Quick Dash assessment of 16% limitation in activity level. 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 Sleeping is not disrupted due to shoulder pain, but he positions his L arm differently due to pain. With the evaluation: decreased L shoulder active ROM and strength of flexion, abduction and IR, with abduction and IR most pain increase; rounded shoulder posture; tenderness over anterior and top of GH joint; testing positive for rotator cuff involvement. Skilled PT services are indicated for modalities for pain; therapeutic exercises to increase L shoulder strength and posture with education for HEP and positioning of shoulder. Plan of Care Interventions Electrical Stimulation,Hot Pack/Cold Pack,Manual Therapy,Neuro Re-education,Patient/Caregiver Education,Therapeutic Activities,Therapeutic Exercise,Ultrasound,Other Other Interventions taping PT Services Indicated Yes Treatment Frequency and 1-2x/wk for 8 visits Duration These treatments will address the objective and functional deficits as defined above. The patient will be advanced safely and appropriately in order for the patient to progress towards his/her prior level of function. Additional exercises will be introduced and as well as a comprehensive home exercise program upon discharge, if needed, ?to ensure carryover of functional gains achieved in the clinic. This treatment plan has been reviewed and agreement upon by the patient.
--- NOTE | 2024-11-27 11:56 | OPREHPOC ---
Outpatient Therapy Plan of Care This is a Multidisciplinary Plan of Care that may contain components documented by all disciplines (PT, OT, and ST.) PT Problem 1 PT Problem #1 Knowledge Deficit PT Goal 1 Goal / Goal Update *independent with HEP (11/27/24 progressing, updated HEP to include strengthening) Target Visit 8 Progress Partially Met PT Problem 2 PT Problem #2 Pain PT Goal 1 Goal / Goal Update * pt report pain rating of 3/10 at worst Target Visit 8 Progress Met PT Problem 3 PT Problem #3 Impaired Flexibility PT Goal 1 Goal / Goal Update increase L shoulder flexibility to improve dressing and self care IR with reaching behind back, to palm above his waist Target Visit 8 Progress Met PT Problem 4 PT Problem #4 Impaired Strength PT Goal 1 Goal / Goal Update increase strength of L shoulder-scapular complex , to improve use of L UE with self care and home activities: in standing, active x 5 reps: 1* flexion to 150' 2* abduction to 140' 3* pt stand with correct shoulder position with exercises and during therapy session Target Visit 8 Progress Met PT Goal 1 Goal / Goal Update Patient to complete activities consistent with gym program with no reported pain or cueing required to ensure correct mechanics with functional lifting activities. Target Visit 4
--- NOTE | 2024-11-27 11:57 | PTOPPROG ---
Assessment and note entered by Mayela Clark, PT Evaluation Information Assessment Status Evaluation ICD-10 Condition Codes (PT) Pain in left shoulder M25.512 Onset August 2024 Subjective Information Pt notes feeling 95% improvement since starting therapy. he reports needing to stretch a little bit more throughout the day. He denies discomfort for greater than 2 weeks while he was on vacation. he can do all that is asked of him with increasing confidence. he is unsure about discharging from PT today due to lack of confidence with a strengthening program. Assessment PT Clinical Summary Patient's condition has improved overall as evidenced by advancements in symptoms, mobility, strength, and overall functional use of the extremity. However, some limitations are still present such as confidence with continued strengthening. Patient would benefit from continued skilled PT services facilitate a return to their PLOF and education of progressive weight training for strengthening. Plan of Care Interventions Electrical Stimulation,Hot Pack/Cold Pack,Manual Therapy,Neuro Re-education,Patient/Caregiver Education,Therapeutic Activities,Therapeutic Exercise,Ultrasound,Other Other Interventions taping PT Services Indicated Yes Treatment Frequency and 1-2x/wk for 4 visits Duration These treatments will address the objective and functional deficits as defined above. The patient will be advanced safely and appropriately in order for the patient to progress towards his/her prior level of function. Additional exercises will be introduced and as well as a comprehensive home exercise program upon discharge, if needed, ?to ensure carryover of functional gains achieved in the clinic. This treatment plan has been reviewed and agreement upon by the patient.
--- NOTE | 2025-01-01 13:12 | PTOPDC ---
Assessment and note entered by Mayur Chavez PT Evaluation Information Assessment Status Discharge ICD-10 Condition Codes (PT) Pain in left shoulder M25.512 Onset August 2024 Subjective Information Pt notes he is feeling fully recovered and has no further concerns at this time. Pt plans to continue home exercise and routine to gym. Reported Pain Level Pain Score 0: Self Report Assessment PT Clinical Summary Patient's L shoulder has made excellent improvements in strength and functional ROM. Pt demonstrated proper technique in weight training exercises and has improved his confidence to routine to a independent strengthening program. Patient to discharge from physical therapy this date and contact physical therapist or primary care provider if questions or concerns arise. Plan of Care PT Services Indicated No
== END 2025-01-01 15:04 | disposition home or self-care (01) ==
LOC: ANHGOSHPT 12:30
PROVIDERS: PCP Family Medicine; Visit Provider Physician Assistant Medical
DX: M25.512 Pain in left shoulder (principal); G89.29 Other chronic pain
CPT/HCPCS: 97110; 97112; 97161; 97530